=== PATIENT | female | born 2005 | race Hispanic/Latino ===

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

== ENCOUNTER 2025-01-24 07:29 | Emergency (ER) | payer SELFPAY ==
[~2025-01-24] VITALS: Ht 157.5 cm; Wt 90.7 kg
[~2025-01-24 07:29] MED LIST: CEPH250T PO; CEPH500T PO; DICY20TA2 PO; ONDA-243 PO; PANT40TA PO
--- NOTE | 2025-01-24 07:39 | ERN ---
General Chief Complaint: Abdominal Pain Stated Complaint: ABDOMINAL PAIN Time Seen by MD: 07:29 Source: patient History of Present Illness Initial Comments Patient is a 19-year-old female coming in complaining of left lower quadrant pain. Per mother she was recently told she has a an ovarian cyst. Radiator Cleaner advise her to follow up at ER if her pain intensified. No nausea no vomiting. Allergies: Coded Allergies: No Known Allergies (Unverified Allergy, Unknown, 06/08/21) Home Meds Active Scripts Cephalexin (Cephalexin) 500 Mg Tablet, 500 MG PO BID for 7 Days, #14 TAB Prov:TENZIN HAMILTON 04/12/24 Dicyclomine HCl (Bentyl) 20 Mg Tab, 20 MG PO Q6HPRN, #20 TAB 0 Refills Prov:TERRY FREED MD 06/08/21 Ondansetron (Ondansetron Odt) 4 Mg Tab.rapdis, 4 MG PO Q6HPRN, #20 TAB 0 Refills Prov:TERRY FREED MD 06/08/21 Pantoprazole Sodium (Protonix) 40 Mg Tablet.dr, 40 MG PO DAILY, #10 TAB 0 Refills Prov:TERRY FREED MD 06/08/21 Cephalexin (Cephalexin) 250 Mg Tablet, 250 MG PO TID for 10 Days, #30 TAB 0 Refills Prov:TERRY FREED MD 06/08/21 Past Medical History Past Medical History: Anxiety, Depression, Diabetes-Type II, Ovarian Cyst Past Surgical History: None Social History Social History: Negative, Lives with family ROS Dictation CONSTITUTIONAL: No chills, no fever, no weakness, no diaphoresis, no malaise. HEAD/FACE: No signs of trauma. EENT: No eye pain, no blurred vision, no tearing, no double vision, no ear pain, no ear discharge, no nose pain, no nasal congestion, no throat pain, no throat swelling, no mouth pain. RESPIRATORY: No cough, no orthopnea, no SOB, no stridor, no wheezing. CARDIOVASCULAR: No chest pain, no edema, no palpitations, no syncope. GASTROINTESTINAL/ABDOMINAL: abdominal pain, no constipation, no diarrhea, no nausea, no vomiting. GENITOURINARY: No abnormal discharge, no dysuria, no frequent urination, no hematuria. No complaints of pain in the genitals. MUSCULOSKELETAL: No back pain, no gout, no joint pain, no joint swelling, no muscle pain, no muscle stiffness, no neck pain. INTEGUMENTARY: No change in color, no change in hair/nails, no dryness, no lesion, no lumps, no rash. NEUROLOGICAL/PSYCH: No anxiety, not depressed, no emotional problem, no headache, no numbness, no pre-existing deficit, no history of seizures, no tremors, no weakness. HEMATOLOGIC/LYMPHATIC: Not anemic, no history of blood clots, no apparent bleeding, no bruising, glands not swollen. All Systems Negative, Except as Noted. Physical Exam Physical Exam Dictation VITAL SIGNS: Reviewed. GENERAL APPEARANCE: Alert, oriented x3, no acute distress, obese. HEAD AND FACE: Non-traumatic. EYES: PERRL, pink conjunctivas, eyelid no trauma, anterior chamber clear. EARS: Pinnas intact and no signs of trauma or erythema. Ear canals clear and no discharge. TMs no erythema. NOSE: No discharge, no bleeding. OROPHARYNX: Mouth normal, teeth no caries, tongue pink. Pharynx clear, no erythema. Tonsils no exudates, no abscesses noted. Mucous membrane moist. NECK: Supple, non-tender, no thyromegaly, no masses, no JVD, no bruits. BREAST: Deferred. CHEST: No tenderness, no crepitus, no paradoxical movement, no retractions. LUNGS: Clear, well-ventilated, symmetric, no rales, no wheezing, no rhonchi, no stridor, good breath sounds bilaterally. HEART: Regular rate, regular rhythm, no murmur, no gallops. VASCULAR: No peripheral edema. ABDOMEN: Soft, positive bowel sounds, nondistended, no guarding, nontender, no rebound, no masses no hepatomegaly, no splenomegaly, no Raymond's sign, no hernias. RECTAL: Deferred. GENITAL: Deferred. NEUROLOGICAL: Normal speech, gross motor function intact, gross sensory function intact. MUSCULOSKELETAL: Neck nontender, full range of motion, back nontender, full range of motion. EXTREMITIES: Nontender, full range of motion. SKIN: Color pink, dry, no turgor, no rash, no lacerations, no abrasions, no contusions. LYMPHATICS: Deferred. Results Laboratory and Microbiology Lab and Micro Result Laboratory Tests Test 01/24/25 07:45 01/24/25 07:54 Urine Color LIGHT-YELLOW (YELLOW) Urine Appearance CLEAR (CLEAR) Urine pH 6.5 (5.0-8.0) Urine Specific [place] 1.021 (1.001-1.031) Urine Protein NEGATIVE mg/dL (NEGATIVE) Urine Glucose (UA) NEGATIVE mg/dL (NEGATIVE) Urine Ketones NEGATIVE mg/dL (NEGATIVE) Urine Occult Blood NEGATIVE (NEGATIVE) Urine Nitrate 1+ (NEGATIVE) H Urine Bilirubin NEGATIVE mg/dL (NEGATIVE) Urine Urobilinogen 0.2 mg/dL (0.2-1.0) Urine Leukocyte Esterase 25 More/uL (NEGATIVE) H Urine RBC 2-5 /HPF (0-1) H Urine WBC 11-25 /HPF (0-1) H Urine Squamous Epithelial Cells FEW /HPF (0-2) Urine Bacteria None /HPF (None Seen) Urine HCG, Qualitative NEGATIVE (NEGATIVE) White Blood Count 11.2 K/uL (4.8-10.8) H Red Blood Count 4.71 MIL/uL (4.00-5.50) Hemoglobin 12.6 g/dL (12.0-16.0) Hematocrit 39.2 % (36-48) Mean Corpuscular Volume 83.2 fL (80-100) Mean Corpuscular Hemoglobin 26.8 pg (27.0-33.0) L Mean Corpuscular Hemoglobin Concent 32.1 g/dL (32.0-36.0) Red Cell Distribution Width 14.5 % (11.0-15.5) Platelet Count 414 K/uL (130-400) H Mean Platelet Volume 10.1 fL (7.5-10.5) Immature Granulocyte % (Auto) 0.3 % (0-1) Neutrophils (%) (Auto) 59.5 % (40.0-77.0) Lymphocytes (%) (Auto) 26.5 % (21.0-51.0) Monocytes (%) (Auto) 8.3 % (3.0-13.0) Eosinophils (%) (Auto) 4.8 % (0.0-8.0) Basophils (%) (Auto) 0.6 % (0.0-5.0) Neutrophils # (Auto) 6.6 K/uL (1.8-7.7) Lymphocytes # (Auto) 3.0 K/uL (1.0-4.8) Monocytes # (Auto) 0.9 K/uL (0.1-1.0) Eosinophils # (Auto) 0.53 K/uL (0.00-0.70) Basophils # (Auto) 0.07 K/uL (0.00-0.20) Absolute Immature Granulocyte (auto 0.03 K/uL (0-1) Nucleated Red Blood Cells 0.0 % (0.0-0.19) Sodium Level 136 mmol/L (136-145) Potassium Level 3.8 mmol/L (3.5-5.1) Chloride Level 103 mmol/L (101-111) Carbon Dioxide Level 29 mmol/L (21-32) Blood Urea Nitrogen 9 mg/dL (7-18) Creatinine 0.6 mg/dL (0.5-1.0) Glomerular Filtration Rate Calc 133 mL/min (>90) Random Glucose 94 mg/dL (70-105) Total Calcium 8.3 mg/dL (8.5-10.1) L EKG/XRAY/US/CT/[place] [address] IMAGING REPORT Signed PATIENT: JESICA SCHWARTZ MR#: [id number] : 2005 SEX: F AGE: 19 LOCATION: [facility] ORDER [id number] STATUS: REG REPORT#: [id number] SERVICE [id number] REASON: OVARIAN CYST ORDERING PHYSICIAN: CORNEL SHEPHERD MD PROCEDURE: PELVCOMP - US PELVIC NON-OB COMP EXAM: US Pelvis, Complete. CLINICAL HISTORY: OVARIAN CYST TECHNIQUE: Transvaginal and transabdominal pelvic ultrasound (complete) with image documentation. COMPARISON: None provided. FINDINGS: ENDOMETRIUM: Normal thickness. UTERUS/CERVIX: The uterus appears within normal limits. No uterine fibroid or other mass evident. RIGHT OVARY: There appears to be normal Doppler flow on transabdominal images. No abnormal mass. There is a 3.0 x 2.2 x 2.0 cm right ovarian cyst, and also a 3.9 x 4.3 x 3.0 cm exophytic cyst right ovarian cyst. LEFT OVARY: There appears to be normal Doppler flow on transabdominal images. No abnormal mass. FREE FLUID: No free fluid. IMPRESSION: 1. Right ovarian cysts measuring 3.0 x 2.2 x 2.0 cm and 3.9 x 4.3 x 3.0 cm (exophytic). 2. Otherwise normal pelvic ultrasound. /[place] DICTATED BY: MONSTER NAYLOR Jr., MD DATE: 01/24/25955 ELECTRONICALLY SIGNED BY: MONSTER NAYLOR Jr., MD DATE: 01/24/25955 [facility] MDM: Differential diagnosis: OVARIAN CYST, UTI, Rationale: Tests considered and ordered secondary to shared decision making include: Previous outside records reviewed: Old ER visits. Risk of complication and/or morbidity or mortality of patient management: None Medications-Per medication reconciliation Need for hospitalization: Patient does meet criteria for hospitalization. Need for emergency major/minor surgery: No PATIENT HAS BEEN IN HIS HAS BEEN FEMALE COMING IN LABORATORY WORKUP POSITIVE FOR URINARY TRACT INFECTION. ON ULTRASOUND PATIENT DOES HAS A RIGHT OVARIAN CYST WHICH SHE WAS AWARE OF DID ADVISE HER APPROPRIATE FOLLOW UP WITH PCP/GALVANOMETER ASSEMBLER. ULTRASOUND DID SHOW FLOW TO THE OVARY. ED Course Orders Procedure Category Date Status Time Cbc With Differential LAB 01/24/25 Complete 07:35 Basic Metabolic Panel LAB 01/24/25 Complete 07:35 Urinalysis LAB 01/24/25 Complete W/Microscopic 07:35 ,Urine Test LAB 01/24/25 Complete 07:35 Us Pelvic Non-Ob Comp US 01/24/25 Resulted 07:35 Culture Urine TIFF 01/24/25 In Process 08:13 Vital Signs Date Time Temp Pulse Resp B/P (MAP) Pulse Ox O2 Delivery O2 Flow Rate FiO2 01/24/25 08:00 98.6 78 20 133/80 98 Room Air* 0 21 01/24/25 07:29 98.1 90 16 120/82 99 Room Air DX & DISP Disposition: Discharge Departure Impression: Primary Impression: Ovarian cyst Additional Impression: Urinary tract infection Condition: Stable Scripts Cephalexin Monohydrate (Keflex) 500 Mg Cap 1 CAP PO BID for 10 Days, #20 CAP 0 Refills Prov: CORNEL SHEPHERD MD 01/24/25 Additional Instructions: FOLLOW-UP WITH PRIMARY CARE PROVIDER IN 1 TO 2 DAYS. TAKE MEDICATIONS DIRECTED HERE IN THE EMERGENCY ROOM. OKAY TO CONTINUE HOME MEDICATIONS UNLESS OTHERWISE DISCUSSED DURING YOUR VISIT IN THE EMERGENCY ROOM TODAY. RETURN TO YOUR NEAREST EMERGENCY ROOM IF SYMPTOMS WORSEN OR IF THERE IS NO IMPROVEMENT. CALL 911 IF YOU NEED IMMEDIATE ASSISTANCE. TAKE TYLENOL [id number] NEEDED AND IF NO CONTRAINDICATIONS ARE PRESENT. INCREASE ORAL HYDRATION. A WOUND CULTURE OR URINE CULTURE WAS ORDERED HERE IN THE EMERGENCY ROOM DEPARTMENT PLEASE FOLLOW-UP WITH PRIMARY CARE PROVIDER AND ADVISE THEM TO GET REPORTS FROM OUR FACILITY. IF YOU HAD ANY LAURY WRAP/SPLINTS THAT WERE APPLIED HERE, PLEASE DO NOT REMOVE THEM UNTIL YOU SEE YOUR PRIMARY CARE OR SPECIALTY. REFERRALS: Referrals: SANDRITA BURNS (PCP) Time of Disposition: 09:06 CORNEL SHEPHERD MD Jan 24, 2025 07:39
[2025-01-24 08:03] LABS: IMMATURE GRANULOCYTE ABSOLUTE 0.03 K/uL (0-1); NUCLEATED RED BLOOD CELLS 0.0 % (0.0-0.19); PLATELET COUNT (AUTO) 414 K/uL (130-400); RED BLOOD CELL COUNT(AUTO) 4.71 MIL/uL (4.00-5.50); RED CELL DISTRIBUTION WIDTH 14.5 % (11.0-15.5); WHITE BLOOD COUNT (AUTO) 11.2 K/uL (4.8-10.8)
[2025-01-24 08:10] LABS: HCG,QUALITATIVE URINE NEGATIVE (NEGATIVE)
[2025-01-24 08:11] LABS: APPEARANCE,URINE CLEAR (CLEAR); GLUCOSE, URINE (UA) NEGATIVE (NEGATIVE); LEUKOCYTE ESTERASE ,URINE 25 Leu/uL (NEGATIVE); NITRATE,URINE 1+ (NEGATIVE); OCCULT BLOOD,URINE NEGATIVE (NEGATIVE); SQUAMOUS EPITHELIAL CELL,UR FEW /HPF (0-2)
[2025-01-24 08:22] LABS: CREATININE 0.6 mg/dL (0.5-1.0); GLOMERULAR FILTR. RATE CALC 133.0 mL/min (>90); GLUCOSE,RANDOM 94.0 mg/dL (70-105); SODIUM SERUM 136.0 mmol/L (136-145); UREA NITROGEN, BLOOD 9.0 mg/dL (7-18)
--- NOTE | 2025-01-24 08:57 | HMCIMG ---
EXAM: US Pelvis, Complete. CLINICAL HISTORY: OVARIAN CYST TECHNIQUE: Transvaginal and transabdominal pelvic ultrasound (complete) with image documentation. COMPARISON: None provided. FINDINGS: ENDOMETRIUM: Normal thickness. UTERUS/CERVIX: The uterus appears within normal limits. No uterine fibroid or other mass evident. RIGHT OVARY: There appears to be normal Doppler flow on transabdominal images. No abnormal mass. There is a 3.0 x 2.2 x 2.0 cm right ovarian cyst, and also a 3.9 x 4.3 x 3.0 cm exophytic cyst right ovarian cyst. LEFT OVARY: There appears to be normal Doppler flow on transabdominal images. No abnormal mass. FREE FLUID: No free fluid. IMPRESSION: 1. Right ovarian cysts measuring 3.0 x 2.2 x 2.0 cm and 3.9 x 4.3 x 3.0 cm (exophytic). 2. Otherwise normal pelvic ultrasound. /[place]
[2025-01-24] MEDS ORDERED: CEPH500B PO (09:06)
[2025-01-24 09:59] VITALS: BP 124/78; PULSE 74; RESP 20; TEMP 98.5; O2SAT 99
== END 2025-01-24 10:00 | disposition home or self-care (01) ==
LOC: EDH 07:29
DX: N83.201 Unspecified ovarian cyst, right side (principal); N39.0 Urinary tract infection, site not specified; E11.9 Type 2 diabetes mellitus without complications; Z79.899 Other long term (current) drug therapy
CPT/HCPCS: 36415; 76856; 80048; 81001; 81025; 85025; 87086; 87186; 99284

== ENCOUNTER 2025-03-08 11:01 | Emergency (ER) | payer SELFPAY ==
[~2025-03-08] VITALS: Ht 157.5 cm; Wt 99.0 kg
[~2025-03-08 11:01] MED LIST changes: +CEPH500B PO
--- NOTE | 2025-03-08 11:10 | ERN ---
ED Note History of Present Illness Stated Complaint: PELVIC PAIN Chief Complaint: Pelvic Pain Time Seen by MD: 11:05 Dictation: PATIENT IS A 19-YEAR-OLD FEMALE HERE WITH BILATERAL LOWER PELVIC PAIN ONSET WAS THIS MORNING. NO FEVER NO CHILLS NO NAUSEA VOMITING. NO CHANGE IN BOWEL OR BLADDER FUNCTION AND NO FLANK PAIN. 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 Allergies: Coded Allergies: No Known Allergies (Unverified Allergy, Unknown, 06/08/21) Home Meds Active Scripts Cephalexin Monohydrate (Keflex) 500 Mg Cap, 1 CAP PO BID for 10 Days, #20 CAP 0 Refills Prov:CORNEL SHEPHERD MD 01/24/25 Cephalexin (Cephalexin) 500 Mg Tablet, 500 MG PO BID for 7 Days, #14 TAB Prov:TENZIN HAMILTON 04/12/24 Dicyclomine HCl (Bentyl) 20 Mg Tab, 20 MG PO Q6HPRN, #20 TAB 0 Refills Prov:TERRY FREED MD 06/08/21 Ondansetron (Ondansetron Odt) 4 Mg Tab.rapdis, 4 MG PO Q6HPRN, #20 TAB 0 Refills Prov:TERRY FREED MD 06/08/21 Pantoprazole Sodium (Protonix) 40 Mg Tablet.dr, 40 MG PO DAILY, #10 TAB 0 Refills Prov:TERRY FREED MD 06/08/21 Cephalexin (Cephalexin) 250 Mg Tablet, 250 MG PO TID for 10 Days, #30 TAB 0 Refills Prov:TERRY FREED MD 06/08/21 Past Medical History Past Medical History: Anxiety, Depression, Diabetes-Type II, Ovarian Cyst Surgical History: None Social History: Negative, Lives with family LMP: Mar 06, 2025 RN Note Reviewed/Agreed w/PFSH: Yes Review of System Dictation CONSTITUTIONAL: NEGATIVE EXCEPT FOR HPI HEAD/FACE: NEGATIVE EXCEPT FOR HPI EENT: NEGATIVE EXCEPT FOR HPI RESPIRATORY: NEGATIVE EXCEPT FOR HPI GASTROINTESTINAL/ABDOMINAL: NEGATIVE EXCEPT FOR HPI GENITOURINARY: NEGATIVE EXCEPT FOR HPI BILATERAL LOWER PELVIC PAIN MUSCULOSKELETAL: NEGATIVE EXCEPT FOR HPI INTEGUMENTARY: NEGATIVE EXCEPT FOR HPI NEUROLOGICAL/PSYCH: NEGATIVE EXCEPT FOR HPI HEMATOLOGIC/LYMPHATIC: NEGATIVE EXCEPT FOR HPI ALL SYSTEMS NEGATIVE, EXCEPT NOTED ABOVE. 13 POINT REVIEW OF SYSTEMS ASSESSED AND ALL NEGATIVE EXCEPT FOR ABOVE. Initial Vital Sign VS Vital Signs Date Time Temp Pulse Resp B/P (MAP) Pulse Ox O2 Delivery O2 Flow Rate FiO2 03/08/25 11:03 98.2 97 16 120/82 100 Room Air 0 Physical Exam Dictation VITAL SIGNS REVIEWED GENERAL APPEARANCE: ALERT, ORIENTED X 3, MILD ACUTE DISTRESS, WELL DEVELOPED, NOURISHED. OBESE HEAD AND FACE: NON-TRAUMATIC. EYES: PERRL, PINK CONJUNCTIVAS, EYELID NO TRAUMA, ANTERIOR CHAMBER WITH ARCUS SENILIS. EARS: PINNAS INTACT AND NO SIGNS OF TRAUMA OR ERYTHEMA EAR CANALS CLEAR AND NO DISCHARGE TM NO ERYTHEMA NOSE: NO DISCHARGE, NO BLEEDING. OROPHARYNX: MOUTH NORMAL, TONGUE PINK, PHARYNX CLEAR,NO ERYTHEMA, TONSILS NO EXUDATES, NO ABSCESSES NOTED, MUCOUS MEMBRANE MOIST NECK: SUPPLE, NON-TENDER, NO THYROMEGALY, NO MASSES, NO JVD, NO BRUITS BREAST:DEFERRED CHEST:NO TENDERNESS, NO CREPITUS, NO PARADOXICAL MOVEMENT, NO RETRACTIONS LUNGS:CLEAR, WELL-VENTILATED, SYMMETRIC, NO RALES, NO WHEEZING, NO RHONCHI, NO STRIDOR, GOOD BREATH SOUNDS BILATERALLY HEART: REGULAR RATE, REGULAR RHYTHM, NO MURMUR, NO GALLOPS VASCULAR: NO PERIPHERAL EDEMA, ABDOMEN: SOFT, POSITIVE BOWEL SOUNDS, NONDISTENDED, NO GUARDING, DIFFUSE LOWER PELVIC PAIN. REBOUND TENDERNESS NEGATIVE CVAT RECTAL: DEFERRED GENITAL: DEFERRED NEUROLOGICAL: NORMAL SPEECH, MOTOR FUNCTION INTACT, SENSORY FUNCTION INTACT MUSCULOSKELETAL: NECK NONTENDER, FULL RANGE OF MOTION, BACK NONTENDER, FULL RANGE OF MOTION, EXTREMITIES: NONTENDER, FULL RANGE OF MOTION SKIN: COLOR PINK, DRY, NO TURGOR, NO RASH, NO LACERATIONS, NO ABRASIONS, NO CONTUSIONS. LYMPHATIC: DEFERRED Results (Laboratory/Radiology) Laboratory/Radiology Laboratory Tests Test 03/08/25 11:17 White Blood Count 11.7 K/uL (4.8-10.8) H Red Blood Count 4.62 MIL/uL (4.00-5.50) Hemoglobin 12.6 g/dL (12.0-16.0) Hematocrit 39.1 % (36-48) Mean Corpuscular Volume 84.6 fL (80-100) Mean Corpuscular Hemoglobin 27.3 pg (27.0-33.0) Mean Corpuscular Hemoglobin Concent 32.2 g/dL (32.0-36.0) Red Cell Distribution Width 13.7 % (11.0-15.5) Platelet Count 425 K/uL (130-400) H Mean Platelet Volume 9.9 fL (7.5-10.5) Immature Granulocyte % (Auto) 0.4 % (0-1) Neutrophils (%) (Auto) 68.2 % (40.0-77.0) Lymphocytes (%) (Auto) 17.8 % (21.0-51.0) L Monocytes (%) (Auto) 8.1 % (3.0-13.0) Eosinophils (%) (Auto) 5.1 % (0.0-8.0) Basophils (%) (Auto) 0.4 % (0.0-5.0) Neutrophils # (Auto) 7.9 K/uL (1.8-7.7) H Lymphocytes # (Auto) 2.1 K/uL (1.0-4.8) Monocytes # (Auto) 1.0 K/uL (0.1-1.0) Eosinophils # (Auto) 0.60 K/uL (0.00-0.70) Basophils # (Auto) 0.05 K/uL (0.00-0.20) Absolute Immature Granulocyte (auto 0.05 K/uL (0-1) Nucleated Red Blood Cells 0.0 % (0.0-0.19) Sodium Level 138 mmol/L (136-145) Potassium Level 4.1 mmol/L (3.5-5.1) Chloride Level 104 mmol/L (101-111) Carbon Dioxide Level 27 mmol/L (21-32) Blood Urea Nitrogen 11 mg/dL (7-18) Creatinine 0.7 mg/dL (0.5-1.0) Glomerular Filtration Rate Calc 128 mL/min (>90) Random Glucose 107 mg/dL (70-105) H Total Calcium 8.4 mg/dL (8.5-10.1) L Human Chorionic Gonadotropin, Quant 0 mIU/mL (0-5) 1400/ULTRASOUND DEMONSTRATES EXOPHYTIC CYST TO THE RIGHT OVARY/5 X 3 X 3 CM Labs Reviewed?: Yes ED Course ED Course Orders Procedure Category Date Status Time Acetaminophen 500mg PHA 03/08/25 Complete Tab (Tylenol 500mg T 11:30 Cbc With Differential LAB 03/08/25 Complete 11: Hcg,Quantitative LAB 03/08/25 Complete 11:06 Basic Metabolic Panel LAB 03/08/25 Complete 11:06 Urinalysis Profile LAB 03/08/25 Logged 11:11 Us Pelvic Non-Ob US 03/08/25 Taken Limited 12:14 Current Medications Medications (Trade) Dose Ordered Sig/William Route PRN Reason Start Time Stop Time Status Last Admin Dose Admin Acetaminophen (TYLenol 500MG TAB) 1,000 mg ONCE ONCE PO 03/08/25 11:30 03/08/25 11:31 DC Vital Signs Date Time Temp Pulse Resp B/P (MAP) Pulse Ox O2 Delivery O2 Flow Rate FiO2 03/08/25 11:03 98.2 97 16 120/82 100 Room Air 0 Medical Decision Making MDM MDM: DIFFERENTIAL DIAGNOSIS: ECTOPIC /AB/INCOMPLETE A B/OVARIAN CYST/HEMORRHAGIC CYST RATIONALE: TESTS CONSIDERED AND ORDERED SECONDARY TO SHARED DECISION MAKING INCLUDE: LABS/RADIOLOGY PREVIOUS OUTSIDE RECORDS REVIEWED: OLD ER VISITS. RISK OF COMPLICATION AND/OR MORBIDITY OR MORTALITY OF PATIENT MANAGEMENT: NONE MEDICATIONS-PER MEDICATION RECONCILIATION NEED FOR HOSPITALIZATION: PATIENT DOES NOT MEET CRITERIA FOR HOSPITALIZATION. NONE NEED FOR EMERGENCY MAJOR/MINOR SURGERY: NO THERE ARE NO SOCIAL CONCERNS WITH THIS PATIENT. PRESCRIPTION DRUG MANAGEMENT IBUPROFEN PRESCRIPTIONS WILL INCLUDE SYMPTOMATIC CARE PATIENT'S PRIOR EXTERNAL MEDICAL RECORDS FROM OTHER ER VISITS WERE REVIEWED BY ME INDICATED. PRIOR TESTING AND RESULTS FROM PREVIOUS VISITS WERE REVIEWED. PRIOR TESTS WERE TAKEN INTO ACCOUNT WITH MEDICAL DECISION MAKING AND RESOURCE UTILIZATION, INDEPENDENT HISTORIAN/HISTORIANS WERE USED TO OBTAIN COMPLETE MEDICAL HISTORY. I INDEPENDENTLY INTERPRETED THE TEST THAT WERE PERFORMED, RESULTS WERE REVIEWED BY ME AND CONSIDERED FINDINGS ON RADIOLOGY IF ORDERED. MEDICAL MANAGEMENT AND EXAMINATION INTERPRETATION DISCUSSIONS WERE HAD BY ME WITH OTHER QUALIFIED HEALTHCARE PROFESSIONALS INDICATED FOR THE PATIENT'S CARE. DX & DISP Disposition: Discharge Departure Impression: Primary Impression: Ovarian cyst, right Additional Impression: Pelvic pain in female Condition: Stable Scripts Ibuprofen (Ibuprofen 800 mg Tab) 800 Mg Tab 800 MG PO Q8H PRN for fever or pain, #30 TAB 0 Refills Prov: FLORECITA MOLINA GALLEY COOK 03/08/25 Additional Instructions: FOLLOW-UP WITH PRIMARY CARE PROVIDER IN 1 TO 2 DAYS. TAKE MEDICATIONS DIRECTED HERE IN THE EMERGENCY ROOM. OKAY TO CONTINUE HOME MEDICATIONS UNLESS OTHERWISE DISCUSSED DURING YOUR VISIT IN THE EMERGENCY ROOM TODAY. RETURN TO YOUR NEAREST EMERGENCY ROOM IF SYMPTOMS WORSEN OR IF THERE IS NO IMPROVEMENT. CALL 911 IF YOU NEED IMMEDIATE ASSISTANCE. TAKE TYLENOL OR MOTRIN [id number] NEEDED AND IF NO CONTRAINDICATIONS ARE PRESENT. INCREASE O RAL HYDRATION. A WOUND CULTURE OR URINE CULTURE WAS ORDERED HERE IN THE EMERGENCY ROOM DEPARTMENT PLEASE FOLLOW-UP WITH PRIMARY CARE PROVIDER AND ADVISE THEM TO GET REPEAT PORTS FROM OUR FACILITY. IF YOU HAD ANY LAURY WRAP/SPLINTS THAT WERE APPLIED HERE, PLEASE DO NOT REMOVE THEM UNTIL YOU SEE YOUR PRIMARY CARE OR SPECIALTY. TAKE IBUPROFEN NEEDED FOR PAIN WITH FOOD. WARM COMPRESSES TO PELVIS THREE TO 4 TIMES A DAY. FOLLOW UP WITH THE YOUR OB DOCTOR IN [facility] FOR MANAGEMENT OF YOUR OVARIAN CYST. Referrals: SANDRITA BURNS (PCP) Time of Disposition: 13:58 I have reviewed the case, and I agree with, Diagnosis and Plan FLORECITA MOLINA GALLEY COOK Mar 08, 2025 11:10
[2025-03-08 11:30] LABS: IMMATURE GRANULOCYTE ABSOLUTE 0.05 K/uL (0-1); NUCLEATED RED BLOOD CELLS 0.0 % (0.0-0.19); PLATELET COUNT (AUTO) 425 K/uL (130-400); RED BLOOD CELL COUNT(AUTO) 4.62 MIL/uL (4.00-5.50); RED CELL DISTRIBUTION WIDTH 13.7 % (11.0-15.5); WHITE BLOOD COUNT (AUTO) 11.7 K/uL (4.8-10.8)
[2025-03-08 11:42] LABS: CREATININE 0.7 mg/dL (0.5-1.0); GLOMERULAR FILTR. RATE CALC 128.0 mL/min (>90); GLUCOSE,RANDOM 107.0 mg/dL (70-105); SODIUM SERUM 138.0 mmol/L (136-145); UREA NITROGEN, BLOOD 11.0 mg/dL (7-18)
[2025-03-08 11:53] LABS: HCG,QUANTITATIVE 0.0 mIU/mL (0-5)
[2025-03-08] MEDS ORDERED: IBUP-2077 PO (13:58)
--- NOTE | 2025-03-08 14:13 | HMCIMG ---
EXAM: US Pelvis, Complete Transabdominal CLINICAL HISTORY: Diffuse lower pelvic pain; rule out ovarian cyst. History of right ovarian cyst. TECHNIQUE: Transabdominal pelvic ultrasound (complete) performed with real-time imaging and Doppler evaluation. COMPARISON: Pelvic ultrasound dated 01/24/2025. FINDINGS: UTERUS/CERVIX: Measures 9.0 ??? 4.1 ??? 4.3 cm. Normal uterine contour and echotexture. No uterine fibroid or focal lesion identified. ENDOMETRIUM: Measures 4 mm in thickness. Normal appearance. RIGHT OVARY: Measures 2.8 ??? 1.7 ??? 1.8 cm with normal Doppler flow. An exophytic right ovarian cyst is present, measuring 5.3 ??? 3.7 ??? 3.2 cm. No solid component, mural nodule, or internal vascularity seen. LEFT OVARY: Measures 2.0 ??? 2.0 ??? 2.1 cm with normal Doppler flow. No cyst or solid lesion. CUL-DE-SAC: No free fluid.IMPRESSION: 1. Exophytic right ovarian cyst measuring 5.3 ??? 3.7 ??? 3.2 cm, increased from 3.9 ??? 4.3 ??? 3.0 cm on 01/24/2025. No solid component, mural nodule, or internal vascularity seen. 2. Resolution of previously described smaller simple right ovarian cyst (3.0 ??? 2.2 ??? 2.0 cm). 3. Normal uterus measuring 9.0 ??? 4.1 ??? 4.3 cm with normal contour and echotexture. Endometrium measures 4 mm in thickness with normal appearance. 4. Normal left ovary measuring 2.0 ??? 2.0 ??? 2.1 cm with normal Doppler flow. 5. No free fluid in the cul-de-sac. 6. Compared with prior study dated 01/24/2025, the previously documented smaller right ovarian cyst has resolved, and there is an interval increase in size of the exophytic right ovarian cyst from 3.9 ??? 4.3 ??? 3.0 cm to 5.3 ??? 3.7 ??? 3.2 cm. Remaining pelvic structures are unchanged and within normal limits. /[place]
--- NOTE | 2025-03-08 14:35 | NUR ---
ASSUMED CARE AT THIS TIME.
[2025-03-08 14:44] VITALS: BP 151/82; PULSE 94; RESP 17; TEMP 98.2; O2SAT 100
== END 2025-03-08 14:47 | disposition home or self-care (01) ==
LOC: EDH 11:01
DX: N83.201 Unspecified ovarian cyst, right side (principal); R10.20 Pelvic and perineal pain unspecified side; E11.9 Type 2 diabetes mellitus without complications; Z79.899 Other long term (current) drug therapy
CPT/HCPCS: 36415; 76857; 80048; 84702; 85025; 99284